=== PATIENT | female | born 1995 | race Caucasian/White ===

== ENCOUNTER 2021-09-02 08:15 | Observation (INO) ==
[2021-09-02] MEDS ORDERED: ONDANSETRON INJ 2 MG/ML 2 ML VIAL IV STA (08:22)
[2021-09-02] MEDS ORDERED: SODIUM CHLORIDE 0.9% 1000ML 1,000 ML IV SCH (08:30)
[2021-09-02] MEDS ORDERED: OXYTOCIN 20 UNITS in LACTATED RINGER'S 1,000 ML IV STA (08:45)
[2021-09-02] MEDS ORDERED: DOXYCYCLINE HYCLATE 100 MG CAP PO STA (08:45)
[2021-09-02] MEDS ORDERED: DOXYCYCLINE HYCLATE 100 MG CAP PO ONE (08:46)
[2021-09-02 08:47] LABS: Basophils # (auto) 0.01 K/uL (0-0.2); Basophils % (auto) 0.1 %; Hematocrit (blood only) 33.2 % (37-47); Hemoglobin 11.2 g/dL (12.0-16.0); Immature Granulocytes # (auto) 0.02 K/uL (0.00-0.02); Immature Granulocytes % (auto) 0.3 %; Lymphocytes # (auto) 1.52 K/uL (1.2-3.4); Lymphocytes % (auto) 19.3 %; Mean Corpuscular Hemoglobin 28.6 pg (25-34); Mean Corpuscular Hgb Conc 33.7 g/dL (32-36); Mean Corpuscular Volume 84.7 fL (80-100); Mean Platelet Volume 9.6 fL (7.4-10.4); Monocytes % (auto) 3.8 %; Neutrophils # (auto) 6.04 K/uL (1.4-6.5); Neutrophils % (auto) 76.5 %; Platelet Count 205 K/uL (130-400); RDW Coefficient of Variation 13.4 % (11.5-14.5); RDW Standard Deviation 41.1 fL (36.4-46.3); Red Blood Count 3.92 M/uL (4.2-5.4); White Blood Count 7.89 K/uL (4.8-10.8)
[2021-09-02 08:50] LABS: iSTAT Creatinine 0.5 mg/dl (0.6-1.3); iSTAT Hemoglobin 10.2 g/dl (12.0-16.0); iSTAT Ionized Calcium 1.11 mmol/l (1.12-1.32); iSTAT Potassium 3.8 mmol/L (3.3-5.0)
--- NOTE | 2021-09-02 08:50 | Emergency Department Note ---
Impression & Plan Abnormal uterine bleeding, SAB (spontaneous ), Hemorr early preg- unspec, 11 weeks gestation of , Hypotension ED Provider Note NAME: LATONYA YARBROUGH AGE: 26 SEX: F : 1995 ARRIVES VIA: Ambulance INFORMANT: Patient, EMS personnel, the patient's significant other ED PROVIDER(S): Ar Gallardo DO CHIEF COMPLAINT: Vaginal bleeding HPI: The patient is a 26-year-old female with her first pr esented to emergency department via ambulance for an evaluation of abdominal pain pelvic pain and vaginal bleeding. The patient states the bleeding began initially slow yesterday afternoon. She is noticed increased bleeding cramping and hemorrhaging this started this morning. She arrived via ALS. The patient received IV fluids prior to arrival for hypotension. This is her first . She thinks her last menstrual period was sometime in May. She denies having any chest pain or difficulty breathing. She denies having any lower extremity swelling. She is not seen an ORNAMENTAL IRON WORKER HELPER physician for this but is taking vitamins. The patient denies having any back pain. ROS: See above HPI for pertinent positives & negatives. A total of 10 systems reviewed and were otherwise negative. PAST MEDICAL HISTORY: See Below PAST SURGICAL HISTORY: See Below FAMILY HISTORY: See Below SOCIAL HISTORY: See Below HOME MEDICATIONS: See Below ALLERGIES: See Below VITALS: See Below PHYSICAL EXAMINATION: GENERAL: The patient is awake and alert. She is very anxious appearing. EYES: The conjunctivae are clear. The pupils are round and reactive. EARS, NOSE, MOUTH AND THROAT: The nose is without any evidence of any deformity. I would NECK: The neck is nontender and supple. RESPIRATORY: Normal respiratory effort is noted there is no evidence of wheezing rhonchi or rales CARDIOVASCULAR: Regular rate and rhythm noted there no murmurs rubs or gallops normal S1 normal S2. GASTROINTESTINAL: The abdomen is soft and mildly distended. There is diffuse tenderness to palpation especially in the lower abdomen. There is guarding in the lower abdomen. MUSCULOSKELETAL/EXTREMITIES: There is no evidence of gross deformity full range of motion is noted in the hips and shoulders. SKIN: Skin is pale and dry. There is no significant pedal edema. NEUROLOGIC: Patient is awake alert and oriented x3. MEDICAL DECISION MAKING: The patient is a 26-year-old female who presented to the emergency department for an evaluation of uterine bleeding and first trimester . She had very severe tenderness on my abdominal exam. I discussed the patient's condition with the on-call ORNAMENTAL IRON WORKER HELPER physician. She agreed to evaluate the patient in the emergency department immediately given the patient's hypotension and positive test. Bedside ultrasound revealed significant amount of blood products in the uterus. At this time this was felt to be consistent with a missed spontaneous AB. The patient was evaluated in the emergency department by the ORNAMENTAL IRON WORKER HELPER physician. She was felt to be a good candidate for surgical intervention. The patient was treated with IV fluids in the emergency department. She was reevaluated multiple times. She was also treated with Pitocin. Triage Nursing notes reviewed. Prior medical records reviewed Vital Signs: reviewed and remarkable for hypotension. Differential diagnosis: Etiologies such as threatened AB, miscarriage, ectopic , dysfunction uterine bleeding, bleeding dyscrasia, trauma, infection, as well as others were entertained. ER treatment provided: See below Diagnostics interpreted by me: ECG: EKG was obtained in the emergency department. My interpretation is sinus bradycardia at 50 bpm. There is no ectopy. Nonspecific ST segment a bnormalities were noted. No previous tracing was available. Cardiac Monitoring: An order was placed for continuous cardiac monitoring. The monitor shows a rate of 66 bpm with sinus rhythm. Laboratory studies: As stated above and show below. Imaging studies: See below Consultation(s): I discussed this case with Dr. Condon who will evaluate the patient in the emergency department. ED COURSE: Procedures: Bedside ultrasound was obtained by myself. There was no specific intrauterine gestational sac but there was a large amount of blood noted in the uterine cavity. Critical Care: I have personally spent greater than 45 minutes of critical care time in the direct management of this patient. This includes bedside care, interpretation o f diagnostic studies, and testing, discussion with consultants, patient, and family members, and other required patient management activities. This 45 minutes is in excess of all separately billable procedures. Past Med/Surg History Social History Smoking Status: Never smoker Hx Alcohol Use: No Hx Substance Use: No Preferred Language: Irish Communication Ability: Effective Counter Pocket Sewer Required: No Beliefs That Will Affect Care: Cultural Cultural Beliefs: Paul Current Living Situation: Spouse and Family Other Information That Helps Us Care for You: No Feels Safe at Home: Yes Safety Concerns: Feels Safe At This Time Assistive Devices: None Allergies Allergies Allergy/AdvReac Type Severity Reaction Status Date / Time No Known Allergies Allergy Unverified 09/02/21 08:56 Results & Data (ED) Vital Signs Vital Signs - 24 hr 09/02/21 08:22 09/02/21 08:32 09/02/21 08:34 Temperature 36.8 C Temperature Source Oral Pulse Rate 63 51 L Pulse Rate [Apical] Pulse Rate from SpO2 Sensor 51 L Pulse Rhythm Regular Pulse Rhythm [Apical] Pulse Strength Normal Respiratory Rate 14 19 Respiratory Effort / Characteristics Non-Labored Spontaneous Respiratory Depth Normal Respiratory Pattern Regular Blood Pressure 90/58 L Blood Pressure [Right Arm] Blood Pressure Mean 68 Blood Pressure Mean [Right Arm] Blood Pressure Position Sitting Pulse Oximetry 97 97 100 Oxygen Delivery Method Room Air Room Air Oxygen Flow Rate Sepsis Recent Fever Within 48 Hours No Sepsis New/Unexplained Change in Mental Status No Sepsis Action Taken by Nursing No Action Required 09/02/21 08:36 09/02/21 08:38 09/02/21 08:40 Temperature Temperature Source Pulse Rate 63 68 80 Pulse Rate [Apical] Pulse Rate from SpO2 Sensor 61 70 77 Pulse Rhythm Pulse Rhythm [Apical] Pulse Strength Respiratory Rate 21 24 22 Respiratory Effort / Characteristics Respiratory Depth Respiratory Pattern Blood Pressure Blood Pressure [Right Arm] Blood Pressure Mean Blood Pressure Mean [Right Arm] Blood Pressure Position Pulse Oximetry 100 95 74 L Oxygen Delivery Method Oxygen Flow Rate Sepsis Recent Fever Within 48 Hours Sepsis New/Unexplained Change in Mental Status Sepsis Action Taken by Nursing 09/02/21 08:41 09/02/21 08:42 09/02/21 08:43 Temperature Temperature Source Pulse Rate 83 84 75 Pulse Rate [Apical] Pulse Rate from SpO2 Sensor 79 84 78 Pulse Rhythm Pulse Rhythm [Apical] Pulse Strength Respiratory Rate 21 24 25 H Respiratory Effort / Characteristics Respiratory Depth Respiratory Pattern Blood Pressure 107/53 L 99/55 L Blood Pressure [Right Arm] Blood Pressure Mean 71 69 Blood Pressure Mean [Right Arm] Blood Pressure Position Pulse Oximetry 85 L 100 93 Oxygen Delivery Method Oxygen Flow Rate Sepsis Recent Fever Within 48 Hours Sepsis New/Unexplained Change in Mental Status Sepsis Action Taken by Nursing 09/02/21 08:44 09/02/21 08:45 09/02/21 08:46 Temperature Temperature Source Pulse Rate 66 72 75 Pulse Rate [Apical] Pulse Rate from SpO2 Sensor 71 73 Pulse Rhythm Pulse Rhythm [Apical] Pulse Strength Respiratory Rate 21 17 19 Respiratory Effort / Characteristics Respiratory Depth Respiratory Pattern Blood Pressure 99/62 L Blood Pressure [Right Arm] Blood Pressure Mean 74 Blood Pressure Mean [Right Arm] Blood Pressure Position Pulse Oximetry 77 L 100 Oxygen Delivery Method Oxygen Flow Rate Sepsis Recent Fever Within 48 Hours Sepsis New/Unexplained Change in Mental Status Sepsis Action Taken by Nursing 09/02/21 08:48 09/02/21 08:50 09/02/21 08:52 Temperature Temperature Source Pulse Rate 60 64 65 Pulse Rate [Apical] Pulse Rate from SpO2 Sensor 58 L 62 66 Pulse Rhythm Pulse Rhythm [Apical] Pulse Strength Respiratory Rate 16 15 16 Respiratory Effort / Characteristics Respiratory Depth Respiratory Pattern Blood Pressure 102/61 101/66 Blood Pressure [Right Arm] Blood Pressure Mean 74 77 Blood Pressure Mean [Right Arm] Blood Pressure Position Pulse Oximetry 100 100 100 Oxygen Delivery Method Oxygen Flow Rate Sepsis Recent Fever Within 48 Hours Sepsis New/Unexplained Change in Mental Status Sepsis Action Taken by Nursing 09/02/21 08:54 09/02/21 08:55 09/02/21 08:56 Temperature Temperature Source Pulse Rate 64 62 65 Pulse Rate [Apical] Pulse Rate from SpO2 Sensor 64 62 66 Pulse Rhythm Pulse Rhythm [Apical] Pulse Strength Respiratory Rate 18 19 16 Respiratory Effort / Characteristics Respiratory Depth Respiratory Pattern Blood Pressure Blood Pressure [Right Arm] Blood Pressure Mean 65 Blood Pressure Mean [Right Arm] Blood Pressure Position Pulse Oximetry 81 L 100 100 Oxygen Delivery Method Oxygen Flow Rate Sepsis Recent Fever Within 48 Hours Sepsis New/Unexplained Change in Mental Status Sepsis Action Taken by Nursing 09/02/21 08:58 09/02/21 09:06 Temperature Temperature Source Pulse Rate 60 Pulse Rate [Apical] 71 Pulse Rate from SpO2 Sensor 59 L Pulse Rhythm Pulse Rhythm [Apical] Regular Pulse Strength Respiratory Rate 14 15 Respiratory Effort / Characteristics Non-Labored Spontaneous Respiratory Depth Normal Respiratory Pattern Blood Pressure Blood Pressure [Right Arm] 115/54 L Blood Pressure Mean Blood Pressure Mean [Right Arm] 74 Blood Pressure Position Pulse Oximetry 100 98 Oxygen Delivery Method Nasal Cannula Oxygen Flow Rate 2 Sepsis Recent Fever Within 48 Hours Sepsis New/Unexplained Change in Mental Status Sepsis Action Taken by Snf Medications Current Medication List: was personally reviewed by me Laboratory Data Attestation: I reviewed the patient's lab results. Result diagrams: 09/02/21 08:45 09/02/21 08:45 Lab Results 09/02/21 09/02/21 09/02/21 Range/Units 08:37 08:45 08:45 WBC 7.89 (4.8-10.8) K/uL RBC 3.92 L (4.2-5.4) M/uL Hgb 11.2 L (12.0-16.0) g/dL POC Hgb 10.2 L (12.0-16.0) g/dl Hct 33.2 L (37-47) % POC Hct 30 L (37-47) % MCV 84.7 (80-100) fL MCH 28.6 (25-34) pg MCHC 33.7 (32-36) g/dL RDW Std Deviation 41.1 (36.4-46.3) fL RDW Coeff of Leopoldo 13.4 (11.5-14.5) % Plt Count 205 (130-400) K/uL MPV 9.6 (7.4-10.4) fL Immature Gran % (Auto) 0.3 % Neut % (Auto) 76.5 % Lymph % (Auto) 19.3 % Throckmorton % (Auto) 3.8 % Eos % (Auto) 0.0 % Baso % (Auto) 0.1 % Neut # (Auto) 6.04 (1.4-6.5) K/uL Lymph # (Auto) 1.52 (1.2-3.4) K/uL Throckmorton # (Auto) 0.30 (0.11-0.59) K/uL Eos # (Auto) 0.00 (0-0.5) K/uL Baso # (Auto) 0.01 (0-0.2) K/uL Immature Gran # (Auto) 0.02 (0.00-0.02) K/uL PT (9.0-12.0) Seconds INR (0.9-1.1) APTT (21.0-31.0) Seconds PTT Ratio POC Sodium 139 (135-144) mmol/L Sodium (136-145) mmol/L POC Potassium 3.8 (3.3-5.0) mmol/L Potassium (3.5-5.1) mmol/L POC Chloride 105 (101-112) mmol/L Chloride (98-107) mmol/L Carbon Dioxide (21-32) mmol/L POC Total CO2 20 L (24-31) mmol/L Anion Gap (3-11) POC Anion Gap 19.0 (16-25) mmol/L POC BUN 7 (7-18) mg/dl BUN (6-23) mg/dl Creatinine (0.6-1.2) mg/dl POC Creatinine 0.5 L (0.6-1.3) mg/dl Est Cr Clr Drug Dosing ml/min Est GFR ( Amer) ml/min Est GFR (Non-Af Amer) ml/min BUN/Creatinine Ratio (10-20) Glucose (70-99(Fasting)) mg/dl POC Glucose (other) 131 H (70-99) mg/dl Calcium (8.5-10.1) mg/dl POC Ioniz Calcium Corinne 1.11 L (1.12-1.32) mmol/l Total Bilirubin (0.2-1.0) mg/dl AST (13-39) U/L ALT (7-52) U/L Alkaline Phosphatase (34-104) U/L Total Protein (6.0-8.3) gm/dl Albumin (3.4-5.0) gm/dl Globulin (2.5-4.0) gm/dl Albumin/Globulin Ratio (0.9-2) HCG, Quant mIU/ml Blood Type A Positive Antibody Screen NEGATIVE 09/02/21 09/02/21 09/02/21 Range/Units 08:45 08:45 08:45 WBC (4.8-10.8) K/uL RBC (4.2-5.4) M/uL Hgb (12.0-16.0) g/dL POC Hgb (12.0-16.0) g/dl Hct (37-47) % POC Hct (37-47) % MCV (80-100) fL MCH (25-34) pg MCHC (32-36) g/dL RDW Std Deviation (36.4-46.3) fL RDW Coeff of Leopoldo (11.5-14.5) % Plt Count (130-400) K/uL MPV (7.4-10.4) fL Immature Gran % (Auto) % Neut % (Auto) % Lymph % (Auto) % Throckmorton % (Auto) % Eos % (Auto) % Baso % (Auto) % Neut # (Auto) (1.4-6.5) K/uL Lymph # (Auto) (1.2-3.4) K/uL Th[place]morton # (Auto) (0.11-0.59) K/uL Eos # (Auto) (0-0.5) K/uL Baso # (Auto) (0-0.2) K/uL Immature Gran # (Auto) (0.00-0.02) K/uL PT 10.8 (9.0-12.0) Seconds INR 1.1 (0.9-1.1) APTT 21.5 (21.0-31.0) Seconds PTT Ratio 0.8 POC Sodium (135-144) mmol/L Sodium 135 L (136-145) mmol/L POC Potassium (3.3-5.0) mmol/L Potassium 3.8 (3.5-5.1) mmol/L POC Chloride (101-112) mmol/L Chloride 109 H (98-107) mmol/L Carbon Dioxide 23 (21-32) mmol/L POC Total CO2 (24-31) mmol/L Anion Gap 3 (3-11) POC Anion Gap (16-25) mmol/L POC BUN (7-18) mg/dl BUN 8 (6-23) mg/dl Creatinine 0.48 L (0.6-1.2) mg/dl POC Creatinine (0.6-1.3) mg/dl Est Cr Clr Drug Dosing 170.0 ml/min Est GFR ( Amer) > 150.0 ml/min Est GFR (Non-Af Amer) 135.4 ml/min BUN/Creatinine Ratio 16.7 (10-20) Glucose 138 H (70-99(Fasting)) mg/dl POC Glucose (other) (70-99) mg/dl Calcium 7.5 L (8.5-10.1) mg/dl POC Ioniz Calcium Corinne (1.12-1.32) mmol/l Total Bilirubin 0.9 (0.2-1.0) mg/dl AST 13 (13-39) U/L ALT 18 (7-52) U/L Alkaline Phosphatase 27 L (34-104) U/L Total Protein 5.0 L (6.0-8.3) gm/dl Albumin 3.2 L (3.4-5.0) gm/dl Globulin 1.8 L (2.5-4.0) gm/dl Albumin/Globulin Ratio 1.8 (0.9-2) HCG, Quant 2667 mIU/ml Blood Type Antibody Screen Administered Medications Oxytocin 20 units/ Lactated (Ringer's) 1,002 mls @ 125 mls/hr IV .Q8H1M STA Stop: 09/02/21 16:45 Last Admin: 09/02/21 08:54 Dose: 125 mls/hr Documented by: [id number] Cosigned by: [id number] Discontinued Medications Doxycycline Hyclate (Doxycycline Hyclate 100 Mg Cap) 100 mg PO NOW STA Stop: 09/02/21 08:46 Last Admin: 09/02/21 08:59 Dose: 200 mg Documented by: [id number] Doxycycline Hyclate (Doxycycline Hyclate 100 Mg Cap) Confirm Administered Dose 100 mg PO .STK-MED ONE Stop: 09/02/21 08:47 Last Admin: 09/02/21 08:59 Dose: Not Given Documented by: [id number] Sodium Chloride (Nss 1000ml) 1,000 mls @ 999 mls/hr IV .Q1H1M [facility] Stop: 09/02/21 09:30 Last Admin: 09/02/21 08:40 Dose: 999 mls/hr Documented by: [id number] Ondansetron HCl (Ondansetron Inj 2 Mg/Ml 2 Ml Vial) 4 mg IV NOW STA Stop: 09/02/21 08:23 Last Admin: 09/02/21 09:10 Dose: 4 mg Documented by: [id number] Imaging Data Radiologist's Impression: Ultrasound 09/02/21 08:22 US OB <= 14 weeks fetus CLINICAL HISTORY: Heavy vaginal bleeding. Limited study as the patient went to the OR. COMPARISON: None. TECHNIQUE: Transabdominal Obstetric Ultrasound less than 14 weeks FINDINGS: Uterus: Anteverted without masses. The uterus measures 8.3 x 4.7 x 4.5 cm. There is thickening of the endometrium measuring 2.2 cm. Heterogeneous echogenic material is present within the endometrial canal characteristic of clot and debris. The findings are most characteristic of a missed . The patient was then sent to the OR as the referring clinician was present during the study. No further imaging was performed. IMPRESSION: Ultrasound findings most characteristic of a missed . ACT 112: Negative or not required by law. Electronically signed by: Ruddy Rasmussen M.D. 09/02/2021 9:16 AM Discharge Plan Visit Data Chief Complaint: Vaginal Bleeding Stated Complaint: VAG BLEEDING, POSSIBLE MISCARRIAGE, HYPOTENSIVE ED Provider: Ar Gallardo Discharge Problem: Abnormal uterine bleeding, SAB (spontaneous ), Hemorr early preg- unspec, 11 weeks gestation of , Hypotension Patient Disposition: Being Evaluated by Surgeon Discharge Instructions Interventions: ED Discharge Assessment Last Done: 09/02/21 09:32
--- NOTE | 2021-09-02 08:54 | History & Physical Report ---
Date of Service September 02, 2021 Assessment & Plan (1) SAB (spontaneous ): Plan: No IUP, labs including hcg pending Patient counseled for suction D+C, and consents signed at bedside Doxy 200mg PO now, Oxytocin 200 units/LR to start MEÑO To go to OR Plan to discharge home after if doing well, or will keep overnight if bleeding/needs blood transfusion If Rh neg blood type, will need RhoGAM Patient and her agree with plan of care (2) Hemorr early preg-unspec: Admission and Anticipated Discharge Date Admission Date: 09/02/2021 History of Present Illness Chief Complaint: Bleeding in Primary Care Provider: NO PCP Patient is a 26 year old with LMP "end of May" who started bleeding yesterday 3pm. Bleeding was worse this morning and brought by ambulance to [facility] ED. Noted to having on going bleeding, tachycardia, pale. First pregnanncy, no PNC. Unknown blood type. Dneies fever, chills, other complaints at this time Patient History OB History unknown gestation (approx 11 weeks by LMP) DIE BAKER History None Review of Systems All systems reviewed & are unremarkable except as noted in HPI & below Physical Exam Constitutional: WD/WN, vitals as above Respiratory: normal respiratory effort, lungs clear to auscultation Cardiovascular: RRR, no murmur, no edema Gastrointestinal (Abdomen): normal bowel sounds, soft, nontender, no hepatosplenomegaly Genitourinary: Note large amount of clot in vagina, active bleeding, unable to visualized os fully. EBL at my time of exam approx 200mls with clot US placed and noted no IUP, uterus full of clot
[2021-09-02] MEDS ORDERED: fentaNYL citrate 100 MCG/2 ML VIAL ONE (08:58)
[2021-09-02] MEDS ORDERED: MIDAZOLAM HCL 1 MG/ML 2ML VIAL ONE (08:58)
[2021-09-02] MEDS ORDERED: ATROPINE SULFATE 0.1 MG/ML 10ML SYR IV PRN ×2 (09:03→09:46)
[2021-09-02] MEDS ORDERED: ONDANSETRON INJ 2 MG/ML 2 ML VIAL IV PRN ×2 (09:03→09:46)
[2021-09-02] MEDS ORDERED: ePHEDrine sulfate 50 MG/ML AMP IV PRN ×2 (09:03→09:46)
[2021-09-02] MEDS ORDERED: HYDROmorphone INJ 2 MG/ML SYR/VIAL IV PRN ×2 (09:03→09:46)
[2021-09-02] MEDS ORDERED: fentaNYL citrate 100 MCG/2 ML VIAL IV PRN ×2 (09:03→09:46)
[2021-09-02] MEDS ORDERED: ALBUMIN HUMAN 5% 12.5 GM/250 ML VIAL IV ONE (09:08)
[2021-09-02 09:11] LABS: INR 1.1 (0.9-1.1); Partial Thromboplastin Ratio 0.8; Partial Thromboplastin Time 21.5 Seconds (21.0-31.0); Prothrombin Time 10.8 Seconds (9.0-12.0)
[2021-09-02 09:12] LABS: Alanine Aminotransferase 18 U/L (7-52); Albumin Globulin Ratio 1.8 (0.9-2); Albumin Level 3.2 gm/dl (3.4-5.0); Alkaline Phosphatase 27 U/L (34-104); Anion Gap 3 (3-11); Aspartate Aminotransferase 13 U/L (13-39); BUN Creatinine Ratio 16.7 (10-20); Bilirubin,Total 0.9 mg/dl (0.2-1.0); Blood Urea Nitrogen 8 mg/dl (6-23); Calcium 7.5 mg/dl (8.5-10.1); Carbon Dioxide 23 mmol/L (21-32); Chloride 109 mmol/L (98-107); Est GFR (African American) > 150.0 ml/min; Est GFR (Non-African American) 135.4 ml/min; Globulin 1.8 gm/dl (2.5-4.0); Glucose 138 mg/dl (70-99(Fasting)); Potassium 3.8 mmol/L (3.5-5.1); Sodium 135 mmol/L (136-145)
[2021-09-02] MEDS ORDERED: LIDOCAINE 2% 2 ML VIAL/AMP(20MG/ML) INFIL ONE (09:13)
[2021-09-02] MEDS ORDERED: ONDANSETRON INJ 2 MG/ML 2 ML VIAL ONE (09:13)
[2021-09-02] MEDS ORDERED: DEXAMETHASONE SOD INJ 4 MG/ML VIAL ONE (09:13)
[2021-09-02] MEDS ORDERED: PROPOFOL IV EMULSION 10 MG/ML 20 ML VIAL IV ONE (09:13)
[2021-09-02] MEDS ORDERED: LACTATED RINGER'S 1,000 ML IV SCH ×2 (09:15→10:30)
--- NOTE | 2021-09-02 09:17 | Ultrasound Report ---
US OB <= 14 weeks fetus CLINICAL HISTORY: Heavy vaginal bleeding. Limited study as the patient went to the OR. COMPARISON: None. TECHNIQUE: Transabdominal Obstetric Ultrasound less than 14 weeks FINDINGS: Uterus: Anteverted without masses. The uterus measures 8.3 x 4.7 x 4.5 cm. There is thickening of t he endometrium measuring 2.2 cm. Heterogeneous echogenic material is present within the endometrial c anal characteristic of clot and debris. The findings are most characteristic of a missed . The patient was then sent to the OR as the referring clinician was present during the study. No furth er imaging was performed. IMPRESSION: Ultrasound findings most characteristic of a missed . ACT 112: Negative or not required by law. Electronically signed by: Ruddy Rasmussen M.D. 09/02/2021 9:16 AM
--- NOTE | 2021-09-02 09:47 | Anesthesiology Consultation ---
Date of Service September 02, 2021 Assessment & Plan ASA ASA2E Proposed Anesthesia Anesthesia Type: General Risk / Benefits Reviewed With: PT / POA / Parent / Guardian, Accepts Plan and Informed Consent Obtained History Surgery Operation Date: 09/02/21 14:05 Proposed Procedures p Dilation and Curettage with Suction - Melly Condon MD, PhD Height/Weight Height: 5 ft 3 in Weight: 73 kg Allergies Allergy/AdvReac Type Severity Reaction Status Date / Time No Known Allergies Allergy Unverified 09/02/21 08:56 Medications Active Medications Generic Name Dose Route Start Last Admin Trade Name Freq PRN Reason Stop Dose Admin Oxytocin 20 units/ Lactated 1,002 mls @ 125 mls/hr 09/02/21 08:45 09/02/21 08:54 Ringer's IV 09/02/21 16:45 125 mls/hr .Q8H1M STA Administration NPO Date Last Intake of Fluids: 09/01/21 Time Last Intake of Fluids: 18:00 Date Last Intake of Solids: 09/01/21 Time Last Intake of Solids: 17:00 Exercise / Class Metabolic Activity II 4-5 Yardwork/Stairs/Walk up hill Past Anesthesia History No Hx of Anesthesia Complications and No Family Hx of Anesthesia Complications History of PONV No Hx of PONV and No Hx of Motion Sickness Social History Smoking Status: Never smoker Review of Systems denies fever/cough/ colds/ chest pain/ SOB/ LISA denies LISA Physical Exam Vital Signs Last Vital Signs Temp 37.0 C 09/02/21 09:38 Pulse 68 09/02/21 09:38 Resp 16 09/02/21 09:38 BP 99/59 L 09/02/21 09:38 Pulse Ox 100 09/02/21 09:38 ENMT Mouth: no TMJ abnormality and no dentition abnormality Thyromental Distance: > or= 3.5 Finger Breadths Mallampati Class: II Neck neck extension not limited Respiratory normal respiratory effort; no respiratory distress Auscultation: lungs clear to auscultation bilaterally Cardiovascular Rate/Rhythm: regular rate and regular rhythm Neurologic moves all extremities Psychiatric Orientation: alert and oriented x 3 Testing Laboratory Results 09/02/21 08:45 09/02/21 08:45 PT 10.8 Seconds (9.0-12.0) 09/02/21 08:45 INR 1.1 (0.9-1.1) 09/02/21 08:45 APTT 21.5 Seconds (21.0-31.0) 09/02/21 08:45 HCG, Quant 2667 mIU/ml 09/02/21 08:45 Blood Type A Positive 09/02/21 08:45 Antibody Screen NEGATIVE 09/02/21 08:45 02 08:37 POC Glucose (other) 131 H 09/02/21 08:45 HCG, Quant 2668
[2021-09-02] MEDS ORDERED: KETOROLAC 30 MG/ML VIAL ONE (10:15)
[2021-09-02] MEDS ORDERED: ACETAMINOPHEN 325 MG TAB PO PRN (10:20)
--- NOTE | 2021-09-02 10:25 | Post Operative Brief Note ---
Immediate Post Op Note v1 Date of Surgery September 02, 2021 Pre & Post Diagnosis Operation Date: 09/02/21 14:05 <No data on this case meets the specified criteria> I identified the patient and participated in the time-out.: Yes Procedure Suction dilation and curettage Operation Date: 09/02/21 14:05 <No data on this case meets the specified criteria> Surgeon Melly Condon MD, PhD House Carpenter Surgucal tech Estimated Blood Loss 200 Findings Consistent with Post-Op Diagnosis Normal external genitalia, normal vagina with cervix dilated at 1 cm with clot in os. Uterus measured 8 cm Specimens POC Anesthesia Type General Complications None Disposition Accompanied Patient To Recovery: No Disposition: Recovery Room
--- NOTE | 2021-09-02 10:30 | Operative Report ---
Post Operative Report Pre & Post Diagnosis 26 year old at approx 11 weeks SAB with hemorrhage Hypotension I identified the patient and participated in the time-out.: Yes Procedure Suction Dilation and curettage Operation Date: 09/02/21 14:05 <No data on this case meets the specified criteria> Surgeon Melly Condon MD, PhD Industrial Relations Officer [employer] Estimated Blood Loss 200 Findings Consistent with Post-Op Diagnosis Normal appearing external genitalia, normal vaginal with bright red blood, cervix 1 cm with clot at os. Uterus measured to 7 cm. Large amount of POC removed with suction curette Specimens Products of conception Drains None Anesthesia Type General Complications None Disposition Accompanied Patient To Recovery: No Indications SAB with hemorrhage Description of Procedure Patient was placed in the dorsal lithotomy position with yellow fins. The pelvis was prepped and the patient was draped in the usual fashion. Careful pelvic examination is performed to locate the position of the uterus and noted mild dilation of the cervical os to 1 cm. A painting retractor was placed in the vagina and the cervix was grasped with a single-tooth tenaculum and gently drawn towards the vaginal outlet. With gentle pressure, the cervix was dilated to 25.. A 8 mm curved suction catheter was used for suction. The catheter was placed without suction into the uterine cavity. Blood and products of conception were collected in the section catheter container. After adequate removal of products, a sharp curette was used to remove additional products of conception adherent to uterine evans. The products were collected on a Telfa pad. After removing products of conception and feeling circumferential uterine cri, adequate hemostasis was noted from coming from the uterus and the tenaculum was removed. Upon reexamination the patient was hemostatic and all instruments were removed. Patient was returned to dorsal supine position and awoke from anesthesia. She was taken to the PACU in good condition. I attest to the content of the Intraoperative Record and any orders documented therein. Any exceptions are noted below.
[2021-09-02] MEDS ORDERED: ePHEDrine sulfate 50 MG/ML SYR ONE (10:34)
--- NOTE | 2021-09-02 13:39 | Anesthesiology Progress Note ---
Date of Service September 02, 2021 Anesthesia Post Procedure Vital Signs Vital Signs: Temp Pulse Pulse Pulse Resp BP BP 09/02/21 12:45 36.5 C 65 16 09/02/21 11:45 36.5 C 66 16 09/02/21 11:25 67 15 103/55 L 09/02/21 11:10 36.9 C 69 18 103/58 L 09/02/21 11:00 69 22 101/57 L 09/02/21 10:50 76 26 H 110/61 09/02/21 10:40 77 20 115/61 09/02/21 10:31 36.8 C 70 18 117/54 L 09/02/21 09:38 37.0 C 68 16 09/02/21 09:32 58 L 16 111/54 L 09/02/21 09:18 58 L 17 09/02/21 09:14 56 L 16 09/02/21 09:06 71 15 09/02/21 08:58 60 14 09/02/21 08:56 65 16 09/02/21 08:55 62 19 09/02/21 08:54 64 18 09/02/21 08:52 65 16 09/02/21 08:50 64 15 101/66 09/02/21 08:48 60 16 102/61 09/02/21 08:46 75 19 09/02/21 08:45 72 17 99/62 L 09/02/21 08:44 66 21 09/02/21 08:43 75 25 H 99/55 L 09/02/21 08:42 84 24 09/02/21 08:41 83 21 107/53 L 09/02/21 08:40 80 22 09/02/21 08:38 68 24 09/02/21 08:36 63 21 09/02/21 08:34 51 L 19 09/02/21 08:32 36.8 C 63 14 90/58 L 09/02/21 08:22 BP Pulse Ox 09/02/21 12:45 105/72 09/02/21 11:45 97/56 L 100 09/02/21 11:25 100 09/02/21 11:10 100 09/02/21 11:00 100 09/02/21 10:50 100 09/02/21 10:40 100 09/02/21 10:31 100 09/02/21 09:38 99/59 L 100 09/02/21 09:32 98 09/02/21 09:18 106/52 L 100 09/02/21 09:14 105/53 L 100 09/02/21 09:06 115/54 L 98 09/02/21 08:58 100 09/02/21 08:56 100 09/02/21 08:55 100 09/02/21 08:54 81 L 09/02/21 08:52 100 09/02/21 08:50 100 09/02/21 08:48 100 09/02/21 08:46 100 09/02/21 08:45 09/02/21 08:44 77 L 09/02/21 08:43 93 09/02/21 08:42 100 09/02/21 08:41 85 L 09/02/21 08:40 74 L 09/02/21 08:38 95 09/02/21 08:36 100 09/02/21 08:34 100 09/02/21 08:32 97 09/02/21 08:22 97 Transfer of Care Handoff Completed per policy Notes Mental Status: alert / awake / arousable and participated in evaluation Patient Amnestic to Procedure: Yes Nausea / Vomiting: adequately controlled Pain: adequately controlled Airway Patency, RR, SpO2: stable & adequate BP & HR: stable & adequate Hydration State: stable & adequate Anesthetic Complications: no major complications apparent and Pt Satisfied with anesthetic care
--- NOTE | 2021-09-02 14:35 | Gynecologic Progress Note ---
Date of Service September 02, 2021 Assessment & Plan (1) SAB (spontaneous ): Plan: s/p suction D+C Post op CBC pending-to be drawn now Plan to d/c home today if ok to go home. Discuss surgery and findings with patient and her at bedside RTC 2 weeks (2) Hemorr early preg-unspec: Plan: Resolved Admission and Anticipated Discharge Date Admission Date: September 02, 2021 Subjective Doing well at this time, comfortable in bed. Minimal bleeding and pain. Wants to go home today Physical Exam Constitutional: WD/WN, vitals as above Respiratory: normal respiratory effort, lungs clear to auscultation Cardiovascular: RRR, no murmur, no edema Gastrointestinal (Abdomen): normal bowel sounds, soft, nontender, no hepatosplenomegaly Results & Data ([facility]) Vital Signs (Past 12 Hours) Vital Signs Temp Pulse Pulse Pulse Resp BP BP 09/02/21 12:45 36.5 C 65 16 09/02/21 11:45 36.5 C 66 16 09/02/21 11:25 67 15 103/55 L 09/02/21 11:10 36.9 C 69 18 103/58 L 09/02/21 11:00 69 22 101/57 L 09/02/21 10:50 76 26 H 110/61 09/02/21 10:40 77 20 115/61 09/02/21 10:31 36.8 C 70 18 117/54 L 09/02/21 09:38 37.0 C 68 16 09/02/21 09:32 58 L 16 111/54 L 09/02/21 09:18 58 L 17 09/02/21 09:14 56 L 16 09/02/21 09:06 71 15 09/02/21 08:58 60 14 09/02/21 08:56 65 16 09/02/21 08:55 62 19 09/02/21 08:54 64 18 09/02/21 08:52 65 16 09/02/21 08:50 64 15 101/66 09/02/21 08:48 60 16 102/61 09/02/21 08:46 75 19 09/02/21 08:45 72 17 99/62 L 09/02/21 08:44 66 21 09/02/21 08:43 75 25 H 99/55 L 09/02/21 08:42 84 24 09/02/21 08:41 83 21 107/53 L 09/02/21 08:40 80 22 09/02/21 08:38 68 24 09/02/21 08:36 63 21 09/02/21 08:34 51 L 19 09/02/21 08:32 36.8 C 63 14 90/58 L 09/02/21 08:22 BP Pulse Ox 09/02/21 12:45 105/72 09/02/21 11:45 97/56 L 100 09/02/21 11:25 100 09/02/21 11:10 100 09/02/21 11:00 100 09/02/21 10:50 100 09/02/21 10:40 100 09/02/21 10:31 100 09/02/21 09:38 99/59 L 100 09/02/21 09:32 98 09/02/21 09:18 106/52 L 100 09/02/21 09:14 105/53 L 100 09/02/21 09:06 115/54 L 98 09/02/21 08:58 100 09/02/21 08:56 100 09/02/21 08:55 100 09/02/21 08:54 81 L 09/02/21 08:52 100 09/02/21 08:50 100 09/02/21 08:48 100 09/02/21 08:46 100 09/02/21 08:45 09/02/21 08:44 77 L 09/02/21 08:43 93 09/02/21 08:42 100 09/02/21 08:41 85 L 09/02/21 08:40 74 L 09/02/21 08:38 95 09/02/21 08:36 100 09/02/21 08:34 100 09/02/21 08:32 97 09/02/21 08:22 97
[2021-09-02 14:58] LABS: Hematocrit (blood only) 26.4 % (37-47); Hemoglobin 9.2 g/dL (12.0-16.0); Immature Granulocytes # (auto) 0.01 K/uL (0.00-0.02); Immature Granulocytes % (auto) 0.2 %; Mean Corpuscular Hemoglobin 28.8 pg (25-34); Mean Corpuscular Hgb Conc 34.8 g/dL (32-36); Mean Corpuscular Volume 82.8 fL (80-100); Mean Platelet Volume 9.5 fL (7.4-10.4); Monocytes # (auto) 0.02 K/uL (0.11-0.59); Monocytes % (auto) 0.3 %; Neutrophils % (auto) 91.5 %; Platelet Count 183 K/uL (130-400); RDW Coefficient of Variation 13.2 % (11.5-14.5); RDW Standard Deviation 40.8 fL (36.4-46.3); Red Blood Count 3.19 M/uL (4.2-5.4); White Blood Count 6.23 K/uL (4.8-10.8)
--- NOTE | 2021-09-02 15:15 | Electrocardiogram Report ---
Test Reason : Blood Pressure : / mmHG Vent. Rate : 050 BPM Atrial Rate : 050 BPM P-R Int : 144 ms QRS Dur : 086 ms QT Int : 470 ms P-R-T Axes : 040 069 060 degrees QTc Int : 428 ms Sinus bradycardia Nonspecific ST abnormality Abnormal ECG No previous ECGs available Confirmed by Abdullahi Marc ([id number]) on 09/02/2021 3:14:54 PM Referred By: REFERRED SELF Confirmed By:Abdullahi Marc
--- NOTE | 2021-09-04 06:52 | Discharge Summary ---
Date of Service September 04, 2021 Admission HPI Per Admitting Provider Patient is a 26 year old with LMP "end of May" who started bleeding yesterday 3pm. Bleeding was worse this morning and brought by ambulance to [facility]. Noted to having on going bleeding, tachycardia, pale. First pregnanncy, no PNC. Unknown blood type. Dneies fever, chills, other complaints at this time Admission Exam (Per Admitting) Constitutional WD/WN, vitals as above Respiratory normal respiratory effort, lungs clear to auscultation Cardiovascular RRR, no murmur, no edema Gastrointestinal (Abdomen) normal bowel sounds, soft, nontender, no hepatosplenomegaly Discharge Data Consultations 09/02/21 08:35 Consult Obstetrics Stat Procedures Performed Operation Date: 09/02/21 14:05 Actual Procedures p Dilation and Curettage with Suction(Not Applicable) - Melly Condon MD, PhD Hospital Course (1) SAB (spontaneous ): s/p suction D+C Post op CBC stable D/c home with 2 week F/U in clinic Path pending (2) Hemorr early preg-unspec: Resolved
--- NOTE | 2021-09-04 06:53 | Discharge Summary ---
Date of Service September 04, 2021 Admission HPI Per Admitting Provider Patient is a 26 year old with LMP "end of May" who started bleeding yesterday 3pm. Bleeding was worse this morning and brought by ambulance to [facility]. Noted to having on going bleeding, tachycardia, pale. First pregnanncy, no PNC. Unknown blood type. Dneies fever, chills, other complaints at this time Admission Exam (Per Admitting) Constitutional WD/WN, vitals as above Respiratory normal respiratory effort, lungs clear to auscultation Cardiovascular RRR, no murmur, no edema Gastrointestinal (Abdomen) normal bowel sounds, soft, nontender, no hepatosplenomegaly Discharge Data Consultations 09/02/21 08:35 Consult Obstetrics Stat Procedures Performed Operation Date: 09/02/21 14:05 Actual Procedures p Dilation and Curettage with Suction(Not Applicable) - Melly Condon MD, PhD Hospital Course (1) SAB (spontaneous ): s/p suction D+C Post op CBC stable D/c home with 2 week F/U in clinic Path pending (2) Hemorr early preg-unspec: Resolved
== END 2021-09-02 16:29 | disposition home or self-care (01) ==
LOC: EDSEX → ED 08:15 → 4S2 09:05 → OR 09:05
DX: O03.9 Complete or unspecified spontaneous abortion without complication; Z20.822 Contact with and (suspected) exposure to COVID-19; O20.9 Hemorrhage in early pregnancy, unspecified; Z3A.11 11 weeks gestation of pregnancy